=== PATIENT | male | born 1995 | race Two or more races ===

== ENCOUNTER 2021-03-22 09:30 | Emergency (ER) | payer OTHER ==
[~2021-03-22] VITALS: Ht 188 cm; Wt 155.6 kg
[2021-03-22] MEDS ORDERED: PERCOCET 10-321 EACH (09:58)
== END 2021-03-22 18:27 | disposition home or self-care (01) ==
LOC: ER 09:30
DX: K60.2 Anal fissure, unspecified (principal); J45.998 Other asthma

== ENCOUNTER 2021-04-07 08:00 | Day surgery (SDC) | payer OTHER ==
[~2021-04-07 08:00] MED LIST: PERCOCET 10-321 EACH
[2021-04-07] MEDS ORDERED: PERCOCET 5-3251 EACH PO (14:02)
== END 2021-04-07 17:00 | disposition home or self-care (01) ==
LOC: CIR.AMB 08:00
PROVIDERS: ATTEND Surgery
DX: K62.4 Stenosis of anus and rectum (principal); K60.1 Chronic anal fissure; Z20.822 Contact with and (suspected) exposure to COVID-19

== ENCOUNTER 2023-01-26 08:08 | Day surgery (SDC) | payer OTHER ==
[~2023-01-26 08:08] MED LIST changes: +AUGMENTIN125 MG/5 M PO; +PERCOCET 5-3251 EACH PO
[2023-01-26] MEDS ORDERED: OXYC1TAB9 PO (14:42)
== END 2023-01-26 17:40 | disposition home or self-care (01) ==
LOC: CIR.AMB 08:08
PROVIDERS: ATTEND Surgery
DX: K60.3 Anal fistula (principal); K60.0 Acute anal fissure; K62.5 Hemorrhage of anus and rectum; K62.89 Other specified diseases of anus and rectum; Z20.822 Contact with and (suspected) exposure to COVID-19; I10 Essential (primary) hypertension

== ENCOUNTER 2023-05-25 08:44 | Day surgery (SDC) | payer OTHER ==
[~2023-05-25 08:44] MED LIST changes: +OXYC1TAB9 PO
[2023-05-25] MEDS ORDERED: HEMOSTATIC MATRIX 1 KIT KIT TOP ONE (11:45)
[2023-05-25] MEDS ORDERED: CEFTRIAXONE SODIUM 2,000 MG VIAL IV ONE (11:45)
[2023-05-25] MEDS ORDERED: DIBUCAINE 15 GM OINT..GM. TUBE RECTAL ONE (11:45)
[2023-05-25] MEDS ORDERED: BUPIVACAINE HCL 30 ML VIAL IJ ONE (11:45)
[2023-05-25] MEDS ORDERED: LIDOCAINE HCL 1%/Epi 20ML VIAL IJ ONE (11:45)
[2023-05-25] MEDS ORDERED: POVIDONE-IODINE SCRUB 118 ML BOTT TOP ONE (11:45)
[2023-05-25] MEDS ORDERED: METRONIDAZOLE/SODIUM CHLORIDE 500 MG/100 ML PIGGYBACK IV ONE (11:45)
[2023-05-25] MEDS ORDERED: TAMSULOSIN HCL 0.4 MG CAP PO ONE ×2 (12:15→14:01)
[2023-05-25] MEDS ORDERED: OXYC1TAB9 PO (14:45)
== END 2023-05-25 16:10 | disposition home or self-care (01) ==
LOC: CIR.AMB 08:44
PROVIDERS: ATTEND Surgery
DX: K60.3 Anal fistula (principal); K62.89 Other specified diseases of anus and rectum